=== PATIENT | male | born 1995 | race Caucasian/White ===

== ENCOUNTER → 2022-05-30 10:26 | Outpatient (BNVA) | payer BC, SELFPAY | PROVIDERS: Visit Provider Nurse Practitioner Family | DX: R10.9 Unspecified abdominal pain (principal); K59.00 Constipation, unspecified | CPT/HCPCS: 80053 ==

== ENCOUNTER → 2024-10-19 10:41 | Outpatient (BNVA) | payer OTHER, SELFPAY | PROVIDERS: Visit Provider Nurse Practitioner | DX: R07.9 Chest pain, unspecified (principal) | CPT/HCPCS: 71046 ==

== ENCOUNTER 2025-08-07 04:42 | Emergency (ER) | payer OTHER, SELFPAY ==
[2025-08-07 04:45] VITALS: BP 146/100; PULSE 83; RESP 16; TEMP 36.6; O2SAT 97; BMI 25.1
--- OUTSIDE RECORDS SUMMARY | 2025-08-07 04:47 | XMS_ITS | Clinical Summary ---
Author Organization [facility] de Address [address] [place] [address] Phone Care Team Providers Care Route Driver [employer] Name Role Phone Unavailable Primary Care Provider Unavailabl e Social History Tobacco Use Types Packs/Day Years Used Date Smoking Tobacco: Never Assessed Sex and Gender Information Value Date Recorded Sex Assigned at Not on file Legal Sex Male 11:50 AM CDT Gender Identity Not on file Sexual Orientation Not on file Plan of Treatment Health Maintenance Due Date Last Done Comments DTAP/TDAP/TD VACCINES (1 - Tdap) 01/18/2015 HEPATITIS B VACCINES (1 of 3 - 19+ 3-dose series) 01/04 HPV VACCINES (1 - 3-dose SCDM series) 01/18/2023 INFLUENZA VACCINE (#1) 2025
--- NOTE | 2025-08-07 05:08 | CTR_ITS ---
PROCEDURE INFORMATION: Exam: CT Abdomen And Pelvis Without Contrast Exam date and time: 08/07/2025 6:23 AM Age: 30 years old Clinical indication: Abdominal pain; Right; C/O RT flank pain; Additional info: R flank pain TECHNIQUE: Imaging protocol: Computed tomography of the abdomen and pelvis without contrast. Radiation optimization: All CT scans at this facility use at least one of these dose optimization techniques: automated exposure control; mA and/or kV adjustment per patient size (includes targeted exams where dose is matched to clinical indication); or iterative reconstruction. COMPARISON: CR XR chest 2V* [id number] 10/19/2024 10:47 AM RADIATION DOSE METRICS: Total DLP (mGy-cm): 439.5 FINDINGS: Liver: Normal. No mass. Gallbladder and biliary ducts: Normal. No calcified stones. No ductal dilation. Pancreas: Normal. No ductal dilation. Spleen: Normal. No splenomegaly. Adrenal glands: Normal. No mass. Kidneys and ureters: Slightly dense renal pyramids. Stomach and bowel: Unremarkable. No obstruction. No mucosal thickening. Appendix: No evidence of appendicitis. Intraperitoneal space: Unremarkable. No free air. No significant fluid collection. Vasculature: Unremarkable. No abdominal aortic aneurysm. Lymph nodes: Unremarkable. No enlarged lymph nodes. Urinary bladder: No additional urinary calculi are observed. Reproductive: Mild right ureteropelvic caliectasis secondary to a 2-3 mm right UVJ calculus. There is slight edema to the right kidney and minimal perinephric stranding. Bones/joints: Unremarkable. No acute fracture. Soft tissues: Unremarkable. CT/CT kidney stone [id number] IMPRESSION: Mildly obstructing right UVJ calculus.
--- NOTE | 2025-08-07 05:10 | ED_ITS ---
HPI - Abdominal Pain 2 General: Chief Complaint: Abdominal Pain Stated Complaint: Low Back pain, and stomach pain Time Seen by Provider: 08/07/25 04:56 History of Present Illness: 30 yo male Patient presents with acute o nset of severe back pain that radiates around to the flank. The pain is described as knife-like in intensity and has been persistent but with episodes of worsening severity. The pain was severe enough to wake the patient from sleep and caused the patient to stop while en route to the hospital. Prior to the onset of pain, the patient reports nocturia with urinary urgency but minimal output. Patient denies dysuria but notes a sensation of incomplete bladder emptying. The pain is described as breath-taking in intensity. No prior history of similar pain episodes. Related Data Previous Rx's ?Medication ?Instructions ?Recorded ondansetron 4 mg disintegrating 4 mg PO Q6H PRN nausea and 08/07/25 tablet vomiting #14 tabs oxycodone-acetaminophen 7.5 mg-325 1 tab PO Q6H PRN pa in #7 tabs 08/07/25 mg tablet (Percocet) tamsulosin 0.4 mg capsule 0.4 mg PO DAILY #7 caps 11/30 Allergies Allergy/AdvReac Type Severity Reaction Status Date / Time No Known Allergies Allergy Verified 08/07/25 04:49 PFSH ED 2 PFSH: Medical History No active medical problems Surgical History No history of previous surgery Family History Denies family history of Diabetes Cancer Hypertension Social History Smoking and tobacco/nicotine status: never used tobacco/nicotine Alcohol intake: never Substance/Drug Use: never Adopted: No Caregiver/support person: No Lives independently: Yes Household members: spouse Housing: House Marital status: Number of children: 2 service: No Current occupational status: employed Current occupation: self Pets and animals: Yes Pets & animals: farm animals Do you think of yourself as: Straight/Heterosexual Current gender identity: Male Physical Exam 2 Const: GENERAL APPEARANCE: cooperative; not frail appearing HENMT: COMMON NORMALS: normocephalic, atraumatic and Normal external nose present HEAD & SCALP: normocephalic and atraumatic FACE & SINUS: normal facial exam and face symmetric NOSE: Normal external nose present Eye: COMMON NORMALS: Equal, round and reactive pupils present and EOMs intact bilaterally PUPIL: Yes Equal, round and reactive pupils present Neck/C-Spine: GENERAL: Yes trachea midline Chest: CHEST: Yes Symmetrical chest wall rise Resp: COMMON NORMALS: normal respiratory effort, No retractions, No use of accessory muscles and clear to auscultation bilaterally AUSCULTATION: clear to auscultation bilaterally Cardio: COMMON NORMALS: regular rate and regular rhythm RATE: regular rate RHYTHM: regular rhythm GI: COMMON NORMALS: Normal to inspection, nondistended, normoactive bowel sounds present : BLADDER/KIDNEY EXAM: Yes CVA tenderness on the right Back/Pelvis: GENERAL BACK: Yes CVA tenderness Extremity: COMMON NORMALS: no pedal edema Neuro: SUGAR COMA SCALE: document GCS findings [place] coma scale eye opening: Spontaneous Sugar coma scale verbal response: Orientated [place] coma scale motor response: Obey commands [place] coma scale total score: 15 S ENSORY EXAM: Yes extremities (intact) Psych: COMMON NORMALS: speech normal SPEECH: Yes normal speech Skin: COMMON NORMALS: no rashes or lesions noted GENERAL SKIN EXAM: no rashes or lesions noted Course 2 Vital Signs: Vital signs: Vital Signs Temperature 97.8 F 08/07/25 04:45 Pulse Rate 65 08/07/25 07:44 Respiratory Rate 18 08/07/25 05:15 Blood Pressure 124/78 08/07/25 07:44 Pulse Oximetry 95 08/07/25 07:44 Oxygen Delivery Me thod Room Air 08/07/25 05:47 MDM - Abdominal Pain Medical Decision Making 30-year-old male patient with right flank pain. He is mildly hypertensive. Otherwise vital signs are stable. CBC is normal. His BMP is not remarkable. Liver enzymes are normal. CRP is 3. CT stone protocol of the abdomen pelvis are pending. CT shows mildly obstructing right UVJ calculus. Flomax, pain and nausea medication. He should be able to pass. Return precautions were given. He is discharged. Outpatient follow-up. Lab Data 08/07/25 04:59 08/07/25 04:59 Labs/Radiology: Radiology Impressions Abdomen/Pelvis CT 08/07/25 05:08 IMPRESSION: Mildly obstructing right UVJ calculus. Laboratory Results WBC 6.59 10^3/uL (3.29-11.43) 08/07/25 04:59 RBC 4.91 10^6/uL (3.85-5.65) 08/07/25 04:59 Hgb 14.30 g/dL (11.27-16.99) 08/07/25 04:59 Hct 42.3 % (37-53) 08/07/25 04:59 MCV 86.2 fl (82-101) 08/07/25 04:59 MCH 29.1 pg (27-33) 08/07/25 04:59 MCHC 33.8 g/dL (30-55) 08/07/25 04:59 RDW 11.5 % (12.1-15.1) L 08/07/25 04:59 Plt Count 275 10^3/cmm (157-399) 08/07/25 04:59 MPV 10.2 fL (7.4-10.4) 08/07/25 04:59 Neut % (Auto) 62.0 % 08/07/25 04:59 Lymph % (Auto) 26.1 % 08/07/25 04:59 [place] % (Auto) 7.6 % 08/07/25 04:59 Eos % (Auto) 2.9 % 08/07/25 04:59 Baso % (Auto) 0.9 % 08/07/25 04:59 Neut # (Auto) 4.09 10^3/uL (1.8-7.7) 08/07/25 04:59 Lymph # (Auto) 1.7 10^3/uL (0.8-4.8) 08/07/25 04:59 [place] # (Auto) 0.5 10^3/uL (0.2-0.9) 08/07/25 04:59 Eos # (Auto) 0.2 10^3/uL (0.0-0.8) 08/07/25 04:59 Baso # (Auto) 0.1 10^3/uL (0.0-0.1) 08/07/25 04:59 Nucleated RBC % (auto) 0 % 08/07/25 04:59 Nucleated RBCs # 0.0 /100WBC 08/07/25 04:59 Sodium 140 mmol/L (136-145) 08/07/25 04:59 Potassium 3.7 mmol/L (3.5-5.1) 08/07/25 04:59 Chloride 102 mmol/L (98-107) 08/07/25 04:59 Carbon Dioxide 26 mmol/L (22-29) 08/07/25 04:59 Anion Gap 15.7 (5-19) 08/07/25 04:59 BUN 13 mg/dL (6-20) 08/07/25 04:59 Creatinine 0.9 mg/dL (0.7-1.2) 08/07/25 04:59 GFR Calculation 99.8 mL/min (90-130) 08/07/25 04:59 Glucose 125 mg/dL (65-115) H 08/07/25 04:59 Calculated Osmolality 292 mOsm/kg (285-295) 08/07/25 04:59 Calcium 9.6 mg/dL (8.5-10.5) 08/07/25 04:59 Total Bilirubin 0.3 mg/dL (0.15-1.2) 08/07/25 04:59 AST 22 U/L (0-40) 08/07/25 04:59 ALT 24 U/L (0-41) 08/07/25 04:59 Alkaline Phosphatase 92 U/L (40-130) 08/07/25 04:59 C-Reactive Protein 3.0 mg/L (0.0-4.9) 08/07/25 04:59 Total Protein 7.7 g/dL (6.6-8.7) 08/07/25 04:59 Albumin 4.7 g/dL (3.5-5.2) 08/07/25 04:59 Globulin 3.0 g/dL (1.3-4.6) 08/07/25 04:59 Lipase 382 U/L (13-60) H 08/07/25 04:59 Urine Color Dark yellow (Yellow) A 08/07/25 05:41 Urine Appearance Cloudy (CLEAR) A 08/07/25 05:41 Urine pH 5.5 (5-7) 08/07/25 05:41 Ur Specific [place] 1.039 (1.005-1.030) H 08/07/25 05:41 Urine Protein 2+ (Negative) A 08/07/25 05:41 Urine Glucose (UA) Negative (Normal) 08/07/25 05:41 Urine Ketones Trace (Negative) 08/07/25 05:41 Urine Blood 2+ (Negative) A 08/07/25 05:41 Urine Nitrate Negative (Negative) 08/07/25 05:41 Urine Bilirubin 1+ (Negative) H 08/07/25 05:41 Urine Urobilinogen 1.0 mg/dL (Negative) 08/07/25 05:41 Ur Leukocyte Esterase Negative (Negative) 08/07/25 05:41 Urine RBC >100 /hpf (0-2) H 08/07/25 05:41 Urine WBC 0-5 /hpf (0-5) 08/07/25 05:41 Ur Squamous Epith Cells 0-5 /hpf (0-5) 08/07/25 05:41 Calcium Oxalate Crystal 40-55 /hpf H 08/07/25 05:41 Amorphous Sediment Not Reportable 08/07/25 05:41 Urine Bacteria None seen /hpf (NONE) 08/07/25 05:41 Hyaline Casts 2.87 /lpf 08/07/25 05:41 Urine Mucus 4+ /hpf 08/07/25 05:41 All radiology interpretation(s) finalized by discharge Discharge Plan Discharge Patient Disposition: Home Clinical Impression: Ureterolithiasis Condition: Stable Prescriptions: New tamsulosin 0.4 mg capsule 0.4 mg PO DAILY Qty: 7 0RF oxycodone-acetaminophen [Percocet] 7.5-325 mg tablet 1 tab PO Q6H PRN (Reason: pain) Qty: 7 0RF ondansetron 4 mg tablet,disintegrating 4 mg PO Q6H PRN (Reason: nausea and vomiting) Qty: 14 0RF Discharge Orders: Discharge ED (Routine); Ordered 08/07/25 Ordered By: Jodi Puente Discharge Diet: Advance as tolerated Discharge Activity: Resume usual activity Patient Instructions: Kidney Stones (ED), Abdominal Pain (ED), Opioid Safety, Pain Management, Patient Portal & [place] Instructions Activity Restrictions/Additional Instructions: Medication as directed. You may use ibuprofen or other anti-inflammatories as well. Return for fever, vomiting liquids despite treatment, worsening pain despite treatment, any other concerning symptoms. Print Language: Prydeinig Coding Level of Care Code ED Central Supply Aide for Andreea Mackenzie
[2025-08-07] MEDS: ondansetron 2 mg/ML SDV 2 mL 4 MG IVP (05:13)
[2025-08-07 05:15] VITALS: RESP 18
[2025-08-07 05:15] LABS: Hematocrit 42.3 % (37-53); Hemoglobin 14.30 g/dL (11.27-16.99); Mean Corpuscular HGB Conc 33.8 g/dL (30-55); Mean Corpuscular Hemoglobin 29.1 pg (27-33); Mean Corpuscular Volume 86.2 fl (82-101); Nucleated Red Blood Cells % 0 %; Platelet Count 275 10^3/cmm (157-399); Red Blood Count 4.91 10^6/uL (3.85-5.65); White Blood Count 6.59 10^3/uL (3.29-11.43)
[2025-08-07] MEDS: morphine 4 mg/mL SDV 1 mL IVP (05:15)
[2025-08-07 05:19] VITALS: PULSE 78; O2SAT 97
[2025-08-07 05:27] LABS: Alanine Aminotransferase 24 U/L (0-41); Albumin Level 4.7 g/dL (3.5-5.2); Alkaline Phosphatase 92 U/L (40-130); Anion Gap 15.7 (5-19); Aspartate Amino Transferase 22 U/L (0-40); Blood Urea Nitrogen 13 mg/dL (6-20); Calcium 9.6 mg/dL (8.5-10.5); Carbon Dioxide 26 mmol/L (22-29); Chloride 102 mmol/L (98-107); Creatinine Clr Calc Pharmacy 125.4992; Globulin 3.0 g/dL (1.3-4.6); Glucose 125 mg/dL (65-115); Osmolality Calculated 292 mOsm/kg (285-295); Potassium 3.7 mmol/L (3.5-5.1); Sodium 140 mmol/L (136-145); Total Protein 7.7 g/dL (6.6-8.7)
[2025-08-07 05:33] LABS: Lipase 382 U/L (13-60)
[2025-08-07 05:47] VITALS: BP 147/91; O2SAT 97
[2025-08-07 05:55] LABS: Glucose Urine UA Negative (Normal); Nitrate Urine Negative (Negative)
[2025-08-07 05:57] LABS: Add Urine Microscopic? YES; Universal Test for UA Present (0)
[2025-08-07 06:15] LABS: Specific Gravity, Urine 1.039 (1.005-1.030)
[2025-08-07 06:36] VITALS: BP 147/91; O2SAT 95
[2025-08-07 07:44] VITALS: BP 124/78; PULSE 65; O2SAT 95
== END 2025-08-07 07:45 | disposition home or self-care (01) ==
PROVIDERS: Emergency Provider Emergency Medicine
DX: N20.1 Calculus of ureter (principal)
CPT/HCPCS: 74176; 80053; 81001; 83690; 85025; 86140; 87086; 96374; 96375; 99285; J1885; J2270; J2405; J7030